=== PATIENT | female | born 1975 | race Caucasian/White ===

== ENCOUNTER 2022-07-05 12:16 | Day surgery (SDC) | payer OTHER, SELFPAY ==
--- NOTE | 2022-07-04 14:44 | HO.ANESPROP2 ---
Documented by User: Katelynn Nye NP 07/04/22 14:45 HPI - Anesthesia Eval Consult details Narrative: 46yo F for Colonoscopy [facility] Past Medical History Medical History Anxiety Arthritis Elevated alkaline phosphatase level GERD (gastroesophageal reflux disease) HTN (hypertension) Splenic artery aneurysm Vitamin D deficiency Surgical History Surgical History H/O colonoscopy H/O esophagogastroduodenoscopy H/O gastric sleeve Social History Social History Patient Tobacco Use Status: Never used Tobacco Use of substances other than those prescribed or required for medical reasons: No Are you DNR?: No Advance Directives: No Advance Directives Information Provided: Yes Patient : No (UCG pending) : No Poor oral hygiene: No Meds Allergies Allergy/AdvReac Type Severity Reaction Status Date / Time No Known Allergies Allergy Verified 07/04/22 14:45 Home Medications Medication Instructions Recorded Confirmed Last Taken Type atenolol 50 mg tablet 50 mg PO DAILY 07/04/22 07/05/22 07/05/22 11:30 History famotidine 40 mg tablet 40 mg PO BID 07/04/22 07/04/22 Unknown History lamotrigine 100 mg tablet 100 mg PO BID 07/04/22 07/04/22 Unknown History vortioxetine 20 mg tablet 20 mg PO DAILY 07/04/22 07/04/22 Unknown History (Trintellix) Exam Exam Date and Time: July 04, 2022 144 Assessment and Plan Assessment Anesthesia Assessment: Chart Reviewed Documented by User: Evelyn Dumas MD 07/05/22 13:33 HPI - Anesthesia Eval Consult details Narrative: 46yo F for Colonoscopy screening [facility] Past Medical History Medical History Anxiety Arthritis Elevated alkaline phosphatase level GERD (gastroesophageal reflux disease) HTN (hypertension) Splenic artery aneurysm Vitamin D deficiency Family History Family history of problems with anesthesia: No Surgical History Surgical History H/O colonoscopy H/O esophagogastroduodenoscopy H/O gastric sleeve History of Problems with Anesthesia: No Social History Social History Patient Tobacco Use Status: Never used Tobacco Use of substances other than those prescribed or required for medical reasons: No Are you DNR?: No Advance Directives: No Advance Directives Information Provided: Yes Patient : No (UCG pending) : No Poor oral hygiene: No Meds Allergies Allergy/AdvReac Type Severity Reaction Status Date / Time No Known Allergies Allergy Verified 07/04/22 14:45 Home Medications Medication Instructions Recorded Confirmed Last Taken Type atenolol 50 mg tablet 50 mg PO DAILY 07/04/22 07/05/22 07/05/22 11:30 History famotidine 40 mg tablet 40 mg PO BID 07/04/22 07/04/22 Unknown History lamotrigine 100 mg tablet 100 mg PO BID 07/04/22 07/04/22 Unknown History vortioxetine 20 mg tablet 20 mg PO DAILY 07/04/22 07/04/22 Unknown History (Trintellix) Exam Airway Mallampati Class: I TM Dist: >3cm Neck ROM: Full Loose/Missing/Broken Teeth: No Heart: rr Lungs: cta Assessment and Plan Assessment Anesthesia Assessment: Anesthesia Plan Discussed Final Anesthetic Review Family History of Problems with Anesthesia: No History of Problems with Anesthesia: No NPO: Yes ASA Class: II Final Preanesthetic Review: No Changes in Pt Med Stat and Consent Obtained/Reviewed Patient Risk: Low Procedure Risk: Low Anesthetic Plan Anesthetic Plan: MAC: Disposition: Standard PACU
[2022-07-05 12:47] VITALS: BP 123/80; PULSE 68; RESP 16; TEMP 36.3; O2SAT 100; BMI 25.1
[2022-07-05 12:51] LABS: UPreg QC Valid YES; Urine Pregnancy NEGATIVE (NEGATIVE)
--- NOTE | 2022-07-05 12:53 | MHC.SHP ---
Pre-Procedural Eval Section A Date of Service: 07/05/22 The patient is an INPATIENT: No Changes since office visit: No Cold of Flu in the past 2 weeks, No New Medical Problems, No Changes in Medication and No Patient answered all questions The History & Physical has been completed within 30 days and I have reviewed it.: Yes Section B Chief Complaint: Encounter for screening for malignant neoplasm of Allergies: Allergies Allergy/AdvReac Type Severity Reaction Status Date / Time No Known Allergies Allergy Verified 07/04/22 14:45 Plan I have reviewed the history and physical and performed a pertinent physical examination on my patient. No changes have occurred unless specified. Time Spent With Patient Time: Total time managing care of this patient today ____ minutes.
[2022-07-05] MEDS: Lactated Ringers 1,000 ML 100 ML IVCONT (12:54)
--- NOTE | 2022-07-05 13:41 | PM.OP ---
Brief Operative Note Date of Service: 07/05/22 Pre-op diagnosis: screening Post-op diagnosis: same Procedure: colonoscopy Surgeon: Richmond Fair Anesthesia: MAC Was an Practice Administrator used for this Procedure?: No Estimated blood loss (mL): 2 Pathology: other Condition: stable Disposition: PACU
[2022-07-05 13:44] VITALS: BP 103/56; PULSE 75; RESP 17; TEMP 36.7; O2SAT 100
--- NOTE | 2022-07-05 13:54 | OP_ITS ---
DATE OF SERVICE: 07/05/2022 SURGEON: Richmond Fair MD INDICATIONS: Colon cancer screening and prior history of adenomatous colon polyps. PREOPERATIVE DIAGNOSIS: POSTOPERATIVE DIAGNOSIS: PROCEDURE PERFORMED: Colonoscopy to the terminal ileum with biopsy. ESTIMATED BLOOD LOSS: COMPLICATIONS: ANESTHESIA: Monitored anesthesia care. ASSISTANTS: SPECIMENS: DESCRIPTION OF PROCEDURE: A history and physical was performed. The risks and benefits of the procedure were explained to the patient. Informed consent was obtained. The patient was placed in the left lateral decubitus position. A digital rectal exam was performed and was found to be normal. The Olympus pediatric video colonoscope was introduced into the rectum and advanced to the cecum without difficulty. The cecum was identified by transillumination, palpation, and identification of ileocecal valve. Examination was performed. The scope was removed. She tolerated the procedure well and was returned to the recovery area in stable condition. FINDINGS: The terminal ileum was examined and appeared normal. The visualized colonic mucosa was within normal limits. There was some liquid stool coating the mucosa in the right colon and transverse colon. This was washed and suctioned. No polyps were identified. Retroflexed examination showed small internal hemorrhoids. Random sigmoid biopsies were obtained because of the patient's symptoms. IMPRESSION: Normal colonoscopy. RECOMMENDATION: 1. Follow up the biopsy results. 2. Repeat colonoscopy is recommended in 10 years for average risk individuals. MD RILEY Vyas/DEVIKA / [id number]
[2022-07-05 14:01] VITALS: BP 108/67; PULSE 58; RESP 16; TEMP 36.8; O2SAT 100
== END 2022-07-05 14:30 | disposition home or self-care (01) ==
PROVIDERS: Nurse Practitioner; PCP Internal Medicine Geriatric Medicine; Visit Provider Internal Medicine Gastroenterology
PROC: 0DJD8ZZ Inspection of Lower Intestinal Tract, Via Natural or Artificial Opening Endoscopic (ICD-10-PCS; CPT 45378; principal; 2022-07-05 13:00)
DX: Z12.11 Encounter for screening for malignant neoplasm of colon (principal); Z86.010 Personal history of colon polyps; R14.0 Abdominal distension (gaseous); K64.8 Other hemorrhoids; K21.9 Gastro-esophageal reflux disease without esophagitis; I10 Essential (primary) hypertension; I72.8 Aneurysm of other specified arteries; Z98.84 Bariatric surgery status; Z79.899 Other long term (current) drug therapy
CPT/HCPCS: 45380; 81025; 88305